=== PATIENT | female | born 1945 | race Caucasian/White ===

== ENCOUNTER → 2017-01-28 | Outpatient (CLI) | payer BC ==
[2017-01-28 09:56] LABS: ALT/SGPT 38 U/L (12-78); AST/SGOT 30 U/L (15-37); BLOOD UREA NITROGEN 19 mg/dl (7-18); BUN/CREATININE RATIO 22.1 (10-20); CALCIUM 8.7 mg/dl (8.5-10.1); CARBON DIOXIDE 29 mmol/L (21-32); CHLORIDE 108 mmol/L (98-107); CREATININE 0.86 mg/dl (0.60-1.20); FERRITIN 54.5 ng/ml (8.0-388.0); GLUCOSE 92 mg/dl (70-99); POTASSIUM 3.8 mmol/L (3.5-5.1); SODIUM 144 mmol/L (136-145)
[2017-01-28 09:58] LABS: ALB/GLOB RATIO 1.1 (0.9-2); ALKALINE PHOSPHATASE 67 U/L (45-117); CHOLESTEROL 182 mg/dl (0-200); CHOLESTEROL/HDL RATIO 3.7; HDL CHOLESTEROL 49 mg/dl; LDL CHOLESTEROL CALCULATED 99 mg/dl; TRIGLYCERIDES 169 mg/dl (0-150); VERY LOW DENSITY LIPOPROT CALC 34 mg/dl
--- NOTE | 2017-02-04 11:20 | CODING QUERY MEDICAL NECESSITY ---
SUPPORTING DIAGNOSIS NEEDED A supporting diagnosis is required for the test/procedure performed on this patient in order for us to be reimbursed by the patient's insurance. Please provide a supporting diagnosis for the following test/procedure listed below next to the test name along with your signature. *If there is no additional diagnosis for this patient that would support the following test/procedure please document that below next to the test/procedure. Test(s)/Procedure(s) that require a supporting diagnosis: DOS 01/28 * Vitamin D DIAGNOSIS: * Vitamin B12 DIAGNOSIS: * Iron DIAGNOSIS: Provider Signature: Date: Thank you Teresa Knight Health Information Management Once completed, please kindly fax back to [phone] For questions please call [phone]
== END | disposition home or self-care (01) ==
LOC: C.LAB1850 08:33
PROVIDERS: ATTEND Internal Medicine
DX: E78.5 Hyperlipidemia, unspecified (principal); Z11.59 Encounter for screening for other viral diseases; G25.81 Restless legs syndrome; M85.80 Other specified disorders of bone density and structure, unspecified site; E55.9 Vitamin D deficiency, unspecified; E53.8 Deficiency of other specified B group vitamins; R29.898 Other symptoms and signs involving the musculoskeletal system

== ENCOUNTER → 2017-03-05 | Outpatient (CLI) | payer BC ==
--- NOTE | 2017-03-05 17:10 | MAMMOGRAPHY REPORT ---
BILATERAL DIGITAL SCREENING MAMMOGRAM WITH CAD: 03/05/2017 CLINICAL HISTORY: Routine screening. TECHNIQUE: Current study was also evaluated with a Computer Aided Detection (CAD) system. COMPARISON: Comparison is made to exams dated: 02/28/2016 mammogram, 02/22/2015 mammogram, 02/16/2014 m ammogram, 02/11/2013 mammogram, 02/11/2012 mammogram, and 02/07/2011 mammogram - [facility] nter. BREAST COMPOSITION: There are scattered areas of fibroglandular density in both breasts. FINDINGS: The parenchymal pattern is similar to prior exams. No developing mass, architectural dis tortion or cluster of suspicious microcalcifications is seen in either breast. IMPRESSION: ACR BI-RADS CATEGORY 2: BENIGN There is no mammographic evidence of malignancy. A 1 year screening mammogram is recommended. The p atient will receive written notification of the results. Approximately 10% of breast cancers are not detected with mammography. A negative mammographic repor t should not delay biopsy if a clinically suggestive mass is present. Jaqueline Garvin M.D. ay/:03/05/2017 16:16:40 Principal Network Architect: Hao QUEEN(R)(M), [facility] letter sent: Normal 1/2 BI-RADS Code: ACR BI-RADS Category 2: Benign
== END | disposition home or self-care (01) ==
LOC: C.MAMM 09:35
PROVIDERS: ATTEND Obstetrics & Gynecology
DX: Z12.31 Encounter for screening mammogram for malignant neoplasm of breast (principal)

== ENCOUNTER → 2017-04-03 | Outpatient (CLI) | payer BC | END | disposition home or self-care (01) | LOC: C.PATHSPEC 14:14 | PROVIDERS: ATTEND Obstetrics & Gynecology | DX: L90.0 Lichen sclerosus et atrophicus (principal) ==

== ENCOUNTER → 2017-08-05 | Outpatient (CLI) | payer BC ==
[2017-08-05 09:48] LABS: ALT/SGPT 26 U/L (12-78); BLOOD UREA NITROGEN 17 mg/dl (7-18); BUN/CREATININE RATIO 18.6 (10-20); CARBON DIOXIDE 29 mmol/L (21-32); CHLORIDE 107 mmol/L (98-107); CREATININE 0.91 mg/dl (0.60-1.20); GLUCOSE 90 mg/dl (70-99); SODIUM 143 mmol/L (136-145)
[2017-08-05 09:51] LABS: ALB/GLOB RATIO 1.2 (0.9-2); ALKALINE PHOSPHATASE 68 U/L (45-117); AST/SGOT 26 U/L (15-37)
== END | disposition home or self-care (01) ==
LOC: C.LAB1850 08:22
PROVIDERS: ATTEND Internal Medicine
DX: E53.8 Deficiency of other specified B group vitamins (principal); E78.5 Hyperlipidemia, unspecified; E55.9 Vitamin D deficiency, unspecified

== ENCOUNTER → 2018-02-03 | Outpatient (CLI) | payer BC ==
[2018-02-03 10:16] LABS: ALBUMIN 3.8 gm/dl (3.4-5.0); ALT/SGPT 24 U/L (12-78); AST/SGOT 17 U/L (15-37); BLOOD UREA NITROGEN 17 mg/dl (7-18); CALCIUM 8.5 mg/dl (8.5-10.1); CARBON DIOXIDE 28 mmol/L (21-32); CHOLESTEROL 165 mg/dl (0-200); CREATININE 1.02 mg/dl (0.60-1.20); GLUCOSE 94 mg/dl (70-99); POTASSIUM 4.3 mmol/L (3.5-5.1); SODIUM 141 mmol/L (136-145); TRANSFERRIN 250 mg/dl (200-360)
[2018-02-03 10:24] LABS: ALKALINE PHOSPHATASE 61 U/L (45-117); LDL CHOLESTEROL CALCULATED 88 mg/dl; TOTAL PROTEIN 7.1 gm/dl (6.4-8.2)
== END | disposition home or self-care (01) ==
LOC: C.LAB1850 08:43
PROVIDERS: ATTEND Internal Medicine
DX: E78.5 Hyperlipidemia, unspecified (principal); G25.81 Restless legs syndrome; E53.8 Deficiency of other specified B group vitamins; E55.9 Vitamin D deficiency, unspecified

== ENCOUNTER → 2018-03-11 | Outpatient (CLI) | payer BC ==
--- NOTE | 2018-03-11 15:46 | MAMMOGRAPHY REPORT ---
BILATERAL DIGITAL SCREENING MAMMOGRAM TOMOSYNTHESIS WITH CAD: 03/11/2018 CLINICAL HISTORY: Routine screening. Patient has no complaints. TECHNIQUE: Breast tomosynthesis in addition to standard 2D mammography was performed. Current study was also evaluated with a Computer Aided Detection (CAD) system. COMPARISON: Comparison is made to exams dated: 03/05/2017 mammogram, 02/28/2016 mammogram, 02/22/2015 m ammogram, 02/16/2014 mammogram, 02/11/2012 mammogram, and 02/07/2011 mammogram - [facility] ter. BREAST COMPOSITION: There are scattered areas of fibroglandular density in both breasts. FINDINGS: The parenchymal pattern is unchanged. No developing mass, architectural distortion or clus ter of suspicious microcalcifications is seen in either breast. IMPRESSION: ACR BI-RADS CATEGORY 2: BENIGN There is no mammographic evidence of malignancy. A 1 year screening mammogram is recommended. The pa tient will receive written notification of the results. Approximately 10% of breast cancers are not detected with mammography. A negative mammographic report should not delay biopsy if a clinically suggestive mass is present. Jaqueline Garvin M.D. ay/:03/11/2018 09:55:36 Finance Admin: Berta Hameed, [facility] letter sent: Normal 1/2 BI-RADS Code: ACR BI-RADS Category 2: Benign
== END | disposition home or self-care (01) ==
LOC: C.MAMM 09:16
PROVIDERS: ATTEND Internal Medicine
DX: Z12.31 Encounter for screening mammogram for malignant neoplasm of breast (principal)

== ENCOUNTER 2025-03-18 06:01 | Observation (INO) ==
--- NOTE | 2025-03-02 10:07 | PAT Medication Instructions ---
Medication Instructions Date of Service March 02, 2025 Home Medications Medication Instructions Recorded clobetasol 0.05 % topical cream 1 applic topical BID PRN Rash #30 03/10/24 grams diltiazem HCl 120 mg 120 mg PO HS #90 caps 05/10/24 capsule,extended release 24 hr rosuvastatin 5 mg tablet 5 mg PO QPM #90 tabs 05/10/24 pramipexole 0.5 mg tablet 0.5 mg PO QPM #90 tabs 10/05/24 Medication List: clobetasol 0.05 % topical cream 1 applic topical BID PRN Rash vit C 250 mg-vit E 90 mg-zinc 40 mg-copper 1 lo-thloov-cdhyaf capsule (PreserVision AREDS-2) 1 tab PO BID cholecalciferol (vitamin D3) 50 mcg (2,000 unit) capsule 50 mcg PO QAM mecobalamin (vitamin B12) 1,000 mcg chewable tablet 1,000 mcg PO QAM diltiazem HCl 120 mg capsule,extended release 24 hr 120 mg PO HS rosuvastatin 5 mg tablet 5 mg PO QPM pramipexole 0.5 mg tablet 0.5 mg PO QPM acetaminophen 650 mg tablet,extended release (Tylenol Arthritis Pain) 1,300 mg PO QAM lorazepam 0.5 mg tablet 0.5 mg PO DAILY PRN Anxiety MEDICATION INSTRUCTIONS: Continue as directed clobetasol 0.05 % topical cream 1 applic topical BID PRN Rash (do not use after bathing prior to surgery) STOP taking 2 weeks before surgery vit C 250 mg-vit E 90 mg-zinc 40 mg-copper 1 [id number]-aogdxh-rxunze capsule (PreserVision AREDS-2) 1 tab PO BID DO NOT take the morning of surgery cholecalciferol (vitamin D3) 50 mcg (2,000 unit) capsule 50 mcg PO QAM mecobalamin (vitamin B12) 1,000 mcg chewable tablet 1,000 mcg PO QAM Take morning of surgery With a small sip of water, OTHERWISE NOTHING TO EAT OR DRINK AFTER MIDNIGHT: acetaminophen 650 mg tablet,extended release (Tylenol Arthritis Pain) 1,300 mg PO QAM lorazepam 0.5 mg tablet 0.5 mg PO DAILY PRN Anxiety Take evening before surgery diltiazem HCl 120 mg capsule,extended release 24 hr 120 mg PO HS rosuvastatin 5 mg tablet 5 mg PO QPM pramipexole 0.5 mg tablet 0.5 mg PO QPM Other Notes If you have any questions please call us at [phone] or [phone] or [phone] or [phone]
--- NOTE | 2025-03-04 11:25 | Anesthesiology Consultation ---
Date of Service March 04, 2025 Assessment & Plan (1) Encounter for pre-operative examination: - Infectious disease screening: Per assessment on 03/04/25- No known recent infectious disease contacts or current infectious disease symptoms. - PCP visit (03/11/25): "estimated risk probability for perioperative SILVIA 0.1% which is low.. vital signs reviewed and were stable today.. patient was instruc margi to follow up with pre anesthesia testing recommendations for stopping medications prior to surgery.. Reviewed patient's most recent blood work as well as EKG-stable.. from a general medical standpoint, patient cleared for surgery" Chart Review Chart Review: Acceptable Risk for Surgery and Patient seen in Pre Admission Testing Teaching & Discussion Pre-Anesthesia Teaching/Discussion Notes: Instructed NPO after midnight before surgery,except medications with 15 cc of water. Medication instructions provided according to the PAT guidelines. History Surgery Operation Date: 03/18/25 07:30 Proposed Procedures p C3-C4, C4-C5 Anterior Cervical Discectomy and Fusion Spinal Cord Monitoring - Jone Patiño MD Height/Weight Height: 5 ft 3.5 in Weight: 65.1 kg Allergies Allergy/AdvReac Type Severity Reaction Status Date / Time crab Allergy Intermediate Hives Verified 03/11/25 11:28 gabapentin AdvReac Intermediate Dizziness Verified 03/11/25 11:28 hydromorphone AdvReac Intermediate Gastrointestinal Verified 03/11/25 11:28 Upset simvastatin AdvReac Intermediate Leg cramps Verified 03/11/25 11:28 Medications Home Medications Medication Instructions Recorded Confirmed Last Taken clobetasol 0.05 % topical cream 1 applic topical BID PRN Rash #30 03/10/24 03/11/25 Unknown grams vit C 250 mg-vit E 90 mg-zinc 40 1 tab PO BID 03/10/24 03/11/25 06/02/24 mg-copper 1 [id number] capsule (PreserVision AREDS-2) cholecalciferol (vitamin D3) 50 50 mcg PO QAM 04/22/24 03/11/25 06/02/24 mcg (2,000 unit) capsule mecobalamin (vitamin B12) 1,000 1,000 mcg PO QAM 04/22/24 03/11/25 06/02/24 mcg chewable tablet diltiazem HCl 120 mg 120 mg PO HS #90 caps 05/10/24 03/11/25 06/02/24 capsule,extended release 24 hr rosuvastatin 5 mg tablet 5 mg PO QPM #90 tabs 05/10/24 03/11/25 06/02/24 pramipexole 0.5 mg tablet 0.5 mg PO QPM #90 tabs 10/05/24 03/11/25 Unknown acetaminophen 650 mg 1,300 mg PO QAM 03/02/25 03/11/25 Unknown tablet,extended release (Tylenol Arthritis Pain) Past Medical History Medical History Adverse effect of non-steroidal anti-inflammatory drug (NSAID) Entered per remote records, patient denies Asymptomatic age-related postmenopausal state Cervical kyphosis Cervical myelopathy Cervical spine degeneration Chronic low back pain Gait disturbance R/t back pain per patient No assistive devices at this time History of colon polyps History of COVID-19 x2, most recent 2021- Mild symptoms, resolved History of supraventricular tachycardia EMR - 2021 "It might have come from the covid shot." as per patient - no issues since Hyperlipidemia Hypertension Lichen sclerosus et atrophicus Lumbar degenerative disc disease Osteopenia Restless leg syndrome SI (sacroiliac) joint inflammation Exercise / Class Metabolic Activity III < 4 Walking/Shop/Light housework Past Family History Family History Father Family history of diabetes mellitus Mother Breast cancer dx in 60's Other No family history of adverse response to anesthesia Denies family history of Ovarian cancer Prostate cancer Myocardial infarction Colorectal cancer Uterine cancer Past Surgical History Surgical History Adverse effect of anesthesia "Slow to wake up" History of bilateral cataract extraction History of colonoscopy History of esophagogastroduodenoscopy (EGD) History of tooth extraction History of wisdom tooth extraction Past Anesthesia History No Family Hx of Anesthesia Complications and Other ("Slow to wake") History of PONV No Hx of PONV and Hx of Motion Sickness Social History Smoking Status: Never smoker Do You Dip or Chew Tobacco: No Hx Alcohol Use: No Hx Substance Use: No substance use type: does not use Review of Systems Patient denies chest pain, shortness of breath, fever, chills, cough, wheezing, palpitations. Physical Exam Vital Signs BP 125/73 P 83 TEMP 98.3 SP02 96%RA RESP 16 Physical Decreased cervical extension range of motion. Full TMJ range of motion. TMD > 3.5 finger breaths Mallampati Score II Dentition: missing side Lungs: clear throughout to auscultation Cardiac: regular rate and rhythm, no murmurs noted Spine: normal Carotid arteries: negative bruit Extremities: no LE edema Lab Results Anesthesia Preop Results Results Anesthesia Widget: WBC 6.24 K/ul (4.8-10.8) 03/04/25 Hgb 13.4 g/dl (12.0-16.0) 03/04/25 Hct 40.9 % (37.0-47.0) 03/04/25 Plt 271 K/uL (130-400) 03/04/25 Na 144 mmol/L (136-145) 03/04/25 K 4.1 mmol/L (3.5-5.1) 03/04/25 Cl 107 mmol/L (98-107) 03/04/25 CO2 30 mmol/L (21-32) 03/04/25 BUN 22 mg/dl (6-23) 03/04/25 Creat 1.00 mg/dl (0.6-1.2) 03/04/25 Glucose Level 114 mg/dl (70-99(Fasting)) H 03/04/25 PT 10.6 Seconds (9.0-12.0) 03/04/25 PTT 27 Seconds (21-31) 03/04/25 INR 1.0 (0.9-1.1) 03/04/25 HA1c 5.4 % (4.5-5.6) 03/04/25 Blood Type A Positive 03/04/25 Antibody Screen NEGATIVE 03/04/25 Testing Electrocardiogram Date: 03/04/25 NSR at 78bpm. TWA, consider lateral ischemia. ECG done 11/22/2021 (scanned into system) with lateral TWI. Stress echo was done for further evaluation 12/13/21 (exercise echo with no inducible ischemia; poor exercise tolerance). Stress Test Date: 12/13/21 Normal exercise echo without evidence of inducible ischemia at the workload achieved, but very poor exercise tolerance. 86% MPHR. 4.60 METS. LV normal in size and systolic function. LVEF 60-65%. Mild cLVH. Stage II DD. No significant valvular disease.
[2025-03-18] MEDS: LR 60ML/HR IV SCH (06:33)
[2025-03-18] MEDS: LR 15ML/HR IV SCH (06:33)
[2025-03-18] MEDS ORDERED: SUCCINYLCHOLINE CHLORIDE 20 MG/ML 10 ML VIAL IV ONE (06:54)
[2025-03-18] MEDS ORDERED: ONDANSETRON INJ 2 MG/ML 2 ML VIAL ONE (06:54)
[2025-03-18] MEDS ORDERED: DEXAMETHASONE SOD INJ 4 MG/ML VIAL ONE (06:54)
[2025-03-18] MEDS ORDERED: LIDOCAINE 2% 2 ML VIAL/AMP(20MG/ML) INFIL ONE (06:54)
[2025-03-18] MEDS ORDERED: PROPOFOL IV EMULSION 10 MG/ML 20 ML VIAL IV ONE (06:54)
[2025-03-18] MEDS ORDERED: ROCURONIUM BROMIDE 10 MG/ML 5 ML VIAL IV ONE (06:54)
[2025-03-18] MEDS ORDERED: fentaNYL citrate PF 100 MCG/2 ML VIAL ONE ×2 (06:55→09:47)
[2025-03-18] MEDS ORDERED: HYDROmorphone INJ 1 MG/ML SYRINGE IV PRN (06:58)
[2025-03-18] MEDS ORDERED: ATROPINE SULFATE 0.1 MG/ML 10ML SYR IV PRN (06:58)
[2025-03-18] MEDS ORDERED: fentaNYL citrate PF 100 MCG/2 ML VIAL IV PRN (06:58)
[2025-03-18] MEDS ORDERED: ePHEDrine sulfate 50 MG/ML AMP IV PRN (06:58)
[2025-03-18] MEDS ORDERED: DexMEDEtomidine HCL IV 100 MCG/ML VIAL IV ONE (07:02)
[2025-03-18] MEDS ORDERED: PROPOFOL IV EMULSION 10 MG/ML 100 ML VIAL IV ONE ×2 (07:02→09:33)
--- NOTE | 2025-03-18 07:02 | Anesthesiology Consultation ---
Date of Service March 18, 2025 Assessment & Plan Chart Review Chart Review: Acceptable Risk for Surgery Consults Requested none ASA ASA2 Proposed Anesthesia Anesthesia Type: General History Surgery Operation Date: 03/18/25 07:30 Proposed Procedures p C3-C4, C4-C5 Anterior Cervical Discectomy and Fusion, Spinal Cord Monitoring - Jone Patiño MD Height/Weight Height: 5 ft 3.5 in Weight: 66 kg Allergies Allergy/AdvReac Type Severity Reaction Status Date / Time crab Allergy Intermediate Hives Verified 03/18/25 06:17 gabapentin AdvReac Intermediate Dizziness Verified 03/18/25 06:17 hydromorphone AdvReac Intermediate Gastrointestinal Verified 03/18/25 06:17 Upset simvastatin AdvReac Intermediate Leg cramps Verified 03/18/25 06:17 Medications Home Medications Medication Instructions Recorded Confirmed Last Taken clobetasol 0.05 % topical cream 1 applic topical BID PRN Rash #30 03/10/24 03/18/25 Unknown grams vit C 250 mg-vit E 90 mg-zinc 40 1 tab PO BID 03/10/24 03/18/25 03/11/25 08:00 mg-copper 1 [id number] capsule (PreserVision AREDS-2) cholecalciferol (vitamin D3) 50 50 mcg PO QAM 04/22/24 03/18/25 03/17/25 08:00 mcg (2,000 unit) capsule mecobalamin (vitamin B12) 1,000 1,000 mcg PO QAM 04/22/24 03/18/25 03/17/25 08:00 mcg chewable tablet diltiazem HCl 120 mg 120 mg PO HS #90 caps 05/10/24 03/18/25 03/17/25 21:00 capsule,extended release 24 hr rosuvastatin 5 mg tablet 5 mg PO QPM #90 tabs 05/10/24 03/18/25 03/17/25 21:00 pramipexole 0.5 mg tablet 0.5 mg PO QPM #90 tabs 10/05/24 03/18/25 03/17/25 21:00 acetaminophen 650 mg 1,300 mg PO QAM 03/02/25 03/18/25 03/17/25 08:00 tablet,extended release (Tylenol Arthritis Pain) Active Medications Generic Name Dose Route Start Last Admin Trade Name Freq PRN Reason Stop Dose Admin Lactated Ringer's 1,000 mls @ 15 mls/hr 03/18/25 06:00 03/18/25 06:33 Lr IV 03/19/25 05:59 15 mls/hr .Q24H CHASTITY Administration Lactated Ringer's 1,000 mls @ 60 mls/hr 03/18/25 06:00 03/18/25 06:33 Lr IV 03/18/25 22:39 Not Given .[id number] CHASTITY NPO Date Last Intake of Fluids: 03/17/25 Time Last Intake of Fluids: 21:00 Date Last Intake of Solids: 03/17/25 Time Last Intake of Solids: 17:30 Past Medical History Medical History Adverse effect of non-steroidal anti-inflammatory drug (NSAID) Entered per remote records, patient denies Cervical kyphosis Cervical myelopathy History of supraventricular tachycardia EMR - 2021 "It might have come from the covid shot." as per patient - no issues since Lichen sclerosus et atrophicus Gait disturbance R/t back pain per patient No assistive devices at this time Osteopenia Lumbar degenerative disc disease Chronic low back pain Hypertension History of colon polyps Cervical spine degeneration History of COVID-19 x2, most recent 2021- Mild symptoms, resolved Asymptomatic age-related postmenopausal state SI (sacroiliac) joint inflammation Restless leg syndrome Hyperlipidemia Exercise / Class Metabolic Activity II 4-5 Yardwork/Stairs/Walk up hill Past Family History Family History Father Family history of diabetes mellitus Mother Breast cancer dx in 60's Other No family history of adverse response to anesthesia Denies family history of Ovarian cancer Prostate cancer Myocardial infarction Colorectal cancer Uterine cancer Past Surgical History Surgical History Adverse effect of anesthesia "Slow to wake up" History of colonoscopy History of esophagogastroduodenoscopy (EGD) History of tooth extraction History of wisdom tooth extraction History of bilateral cataract extraction Past Anesthesia History No Hx of Anesthesia Complications History of PONV No Hx of PONV Social History Smoking Status: Never smoker Do You Dip or Chew Tobacco: No Hx Alcohol Use: No Hx Substance Use: No substance use type: does not use Physical Exam Vital Signs Last Vital Signs Temp 36.8 C 03/18/25 06:21 Pulse 81 03/18/25 06:21 Resp 16 03/18/25 06:21 BP 160/80 H 03/18/25 06:21 Pulse Ox 96 03/18/25 06:21 O2 Del Method Room Air 03/18/25 06:21 Constitutional no acute distress ENMT Mouth: no TMJ abnormality Thyromental Distance: > or= 3.5 Finger Breadths Mallampati Class: I Neck normal visual inspection Respiratory normal respiratory effort Auscultation: lungs clear to auscultation bilaterally Cardiovascular Rate/Rhythm: regular rate and regular rhythm Neurologic moves all extremities Psychiatric Orientation: alert and oriented x 3 Testing Electrocardiogram Date: 03/04/25 NSR at 78bpm. TWA, consider lateral ischemia. ECG done 11/22/2021 (scanned into system) with lateral TWI. Stress echo was done for further evaluation 12/13/21 (exercise echo with no inducible ischemia; poor exercise tolerance). Stress Test Date: 12/13/21 Normal exercise echo without evidence of inducible ischemia at the workload achieved, but very poor exercise tolerance. 86% MPHR. 4.60 METS. LV normal in size and systolic function. LVEF 60-65%. Mild cLVH. Stage II DD. No significant valvular disease.
--- NOTE | 2025-03-18 07:27 | History & Physical Bridge Note ---
Date of Service March 18, 2025 History & Physical Bridge Note I have examined the patient, reviewed the History & Physical and in the interval since the performance of the History & Physical I have noted the following changes of clinical significance: no changes noted Plan for ACDF C3-4, C4-5
[2025-03-18] MEDS: ceFAZolin 2000MG 2,000 MG/15 ML SYR IV SCH (08:05)
[2025-03-18] MEDS ORDERED: HYDROmorphone INJ 2 MG/ML SYR/VIAL ONE (08:17)
[2025-03-18] MEDS ORDERED: hydrALAZINE HCL 20 MG/ML VIAL ONE (09:59)
[2025-03-18] MEDS: VANCOMYCIN HCL 1000MG/20ML VIAL ONE (10:38)
[2025-03-18] MEDS: FLOSEAL HEMOSTATIC MATRIX 10ML TOP ONE (10:43)
--- NOTE | 2025-03-18 11:03 | Post Operative Brief Note ---
PG Immediate Post Op with CF Date of Surgery March 18, 2025 Pre & Post Diagnosis Operation Date: 03/18/25 07:30 Pre-Op Diagnosis: Spondylolisthesis, Cervical Region Cervical Stenosis of Spinal Canal Cervical Myelopathy Cervical Disc Degeneration Cervical Kyphosis Post-Op Diagnosis: Spondylolisthesis, Cervical Region Cervical Stenosis of Spinal Canal Cervical Myelopathy Cervical Disc Degeneration Cervical Kyphosis I identified the patient and participated in the time-out.: Yes Procedure Operation Date: 03/18/25 07:30 Actual Procedures p C3-C4, C4-C5 Anterior Cervical Discectomy and Fusion, Spinal Cord Monitoring(Not Applicable) - Jone Patiño MD Surgeon Jone Patiño MD Fruit Dumper Sotero Krause PAScarlet Estimated Blood Loss 20 Findings Consistent with Post-Op Diagnosis Drains Emir Drain (15fr) and Eubanks Catheter Anesthesia Type General Complications none Disposition Disposition: Recovery Room
--- NOTE | 2025-03-18 11:20 | Operative Report ---
Post Operative Report Pre & Post Diagnosis Operation Date: 03/18/25 07:30 Pre-Op Diagnosis: Spondylolisthesis, Cervical Region Cervical Stenosis of Spinal Canal Cervical Myelopathy Cervical Disc Degeneration Cervical Kyphosis Post-Op Diagnosis: Spondylolisthesis, Cervical Region Cervical Stenosis of Spinal Canal Cervical Myelopathy Cervical Disc Degeneration Cervical Kyphosis I identified the patient and participated in the time-out.: Yes Procedure Operation Date: 03/18/25 07:30 Actual Procedures C3-C4 Anterior Cervical Discectomy and Fusion (74123) Insertion of Interbody Spacer for Fusion C3-4 () C4-C5 Anterior Cervical Discectomy and Fusion (91718) Insertion of Interbody Spacer for Fusion C4-5 () Anterior Cervical Instrumentation separate from Spacer C3, C4, C5 (88346) Allograft for Spinal Fusion () Implants: Camber Spira C Interbody, Camber Matira Plate Surgeon Jone Patiño MD Rebar Bender Sotero Krause PA-C Estimated Blood Loss 20 Findings Consistent with Post-Op Diagnosis Specimens None Drains Emir Anesthesia Type General Complications none Disposition Disposition: Recovery Room Indications Patient was met in the office where she had signs of C4 cervical radiculopathy as well as cervical myelopathy. We discussed imaging findings with severe disc degeneration, cervical spondylolisthesis and spinal canal stenosis. Operative intervention was discussed in detail, patient elected to proceed with anterior cervical discectomy and fusion at C3-4, C4-5. Description of Procedure Patient was brought to the operating room, she transferred herself independently to the operating table. General anesthesia was induced, neuromonitoring leads were attached as well as SCDs, Eubanks catheter was placed. She was prepped and draped in the usual sterile fashion. Verbal timeout was performed identifying the patient by name date of and verifying the correct procedure. Skin was marked and an anterior cervical incision was made in the upper left side of the patient's neck. Dissection was carried out down to the platysma which was split and elevated. The interval between the sternocleidomastoid as well as the cervical strap muscles was identified. Blunt dissection was carried out to identify the anterior cervical spine. Carotid sheath was palpated and kept lateral to the dissection. I marked the C3-4 disc space with spinal needle and confirmed with fluoroscopy. The prevertebral fascia was then elevated to expose the anterior C3, C4 and superior portion of C5 vertebral bodies as well as the C3-4 and C4-5 disc space. Large anterior osteophyte was removed from the inferior portion of the C3 verte bral body which was covering the C3-4 disc. Longus coli muscles were elevated off the spine bilaterally. Self-retaining retractor was placed. Callao pins were placed into the vertebral bodies of C3 and C4 and distraction was applied across the C3-4 disc space. This restored forward normal alignment to the spinal column at this level. Complete discectomy was then performed removing the C3-4 disc with a series of pituitary rongeur's curettes. High-speed bur was used to remove remaining anterior osteophyte as well as the posterior osteophytes. The posterior longitudinal ligament was identified and transected. Bilateral foraminotomies were performed at C3-4. The C3 and C4 vertebral endplates were then decorticated with a high-speed bur to obtain bleeding bone. Appropriate size interbody spacer was selected and packed with allograft material, this was placed within the C3-4 interspace to encourage interbody fusion. Self-retaining retractor as well as Callao pins were then moved to the C4-5 level. Again the anterior osteophytes were taken down with Kerrison rongeur. Complete discectomy again performed with a series of curettes, pituitary rongeurs to remove the entire C4-5 disc. Posterior osteophytes were taken down with a high-speed bur. Posterior longitudinal ligament was identified and transected. This was removed completely with Kerrison punch. Bilateral foraminotomies were then performed to decompress the exiting C5 nerve roots. Once again the C4 and C5 vertebral endplates were decorticated to obtain bleeding bone. Appropriate size interbody spacer was selected and packed with allograft material. This was spaced within the C4-5 interspace to encourage interbody fusion. Callao pins were removed. An anterior cervical plate was selected and laid over the anterior vertebral bodies. Position was confirmed with intraoperative fluoroscopy. Screws were then placed through the anterior cervical plate into the bodies of C4, C5 and C3. This completed anterior instrumentation separate from the interbody spacers. Wound was thoroughly irrigated. There was no sign of active bleeding. Emir drain was placed exiting out through the anterior skin and sewn in place. Platysma was closed with interrupted Vicryl sutures. The skin was closed with Monocryl and Steri-Strips. Dry sterile dressing applied, soft cervical collar placed. The patient was transferred to PACU in stable condition. I attest to the content of the Intraoperative Record and any orders documented therein. Any exceptions are noted below.
[2025-03-18] MEDS ORDERED: MoRPHine SULFATE 4 MG/ML 1 ML CARP\\VIAL IV PRN (11:21)
[2025-03-18] MEDS ORDERED: bisacodyL 10 MG SUPP PR PRN (11:21)
[2025-03-18] MEDS ORDERED: hydrOXYzine HCl 25 MG TAB PO PRN (11:21)
[2025-03-18] MEDS ORDERED: SOD PHOSPHATE/SOD BIPHOSPHATE ENEMA 132 ML BTL PR PRN (11:21)
[2025-03-18] MEDS ORDERED: LORazepam 2 MG/1 ML VIAL IV PRN (11:21)
[2025-03-18] MEDS ORDERED: FAMOTIDINE 20 MG TAB PO PRN (11:21)
[2025-03-18] MEDS ORDERED: NALOXONE HCL 0.4 MG/1 ML VIAL/CARP IV PRN (11:21)
[2025-03-18] MEDS ORDERED: ONDANSETRON INJ 2 MG/ML 2 ML VIAL IV PRN (11:21)
[2025-03-18] MEDS ORDERED: METOCLOPRAMIDE HCL INJ 5 MG/ML 2 ML VIAL IV PRN (11:21)
[2025-03-18] MEDS ORDERED: DO NOT ADMINISTER PNEUMOCOCCAL VACCINE PRN (11:21)
[2025-03-18] MEDS ORDERED: diphenhydrAMINE Capsule 25 MG CAP PO PRN (11:21)
[2025-03-18] MEDS ORDERED: DO NOT ADMINISTER FLU VACCINE PRN (11:21)
[2025-03-18] MEDS ORDERED: RACEPINEPHRINE 2.25% NEBU SOLN 0.5 ML VIAL INH PRN (11:21)
[2025-03-18] MEDS ORDERED: dexAMETHasone 8 MG in SYRINGE 0 ML IV PRN (11:21)
[2025-03-18] MEDS ORDERED: ACETAMINOPHEN 500 MG TAB PO PRN (11:21)
[2025-03-18] MEDS ORDERED: MAGNESIUM HYDROXIDE SUSP 30 ML UDC PO PRN (11:21)
[2025-03-18] MEDS ORDERED: ALUMINUM/MAGNESIUM SUSP 30 ML UDC PO PRN (11:21)
[2025-03-18] MEDS ORDERED: LORazepam 0.5 MG TAB PO PRN (11:21)
--- NOTE | 2025-03-18 11:29 | Fluoroscopy Report ---
FL cervical 2-3V CLINICAL HISTORY: C3-C4, C4-C5 ACDF COMPARISON STUDY: None FLUOROSCOPY TIME: 58 seconds FLUOROSCOPY IMAGES: 5 EXPOSURE DOSE: 4 mGy FINDINGS: Fluoroscopy was provided for cervical metallic fusion. IMPRESSION: Intraoperative fluoroscopy. ACT 112: Negative or not required by law. Electronically signed by: Uday Shin M.D. 03/18/2025 11:27 AM
[2025-03-18 12:23] LABS: BUN Creatinine Ratio 17.2 (10-20); Calcium 8.7 mg/dl (8.6-10.3); Creatinine Clr Calc Pharmacy 43.3 ml/min; Potassium 4.2 mmol/L (3.5-5.1)
--- NOTE | 2025-03-18 14:15 | Orthopedic Progress Note ---
Date of Service March 18, 2025 Assessment & Plan (1) S/P cervical spinal fusion: Sensation and motor function appears to be intact, will continue to monitor while here but when awake she does fire all muscles appropriately, possible that the SCDs were creating odd sensation in calf/ankle area. 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 Patient very somnolent, able to arouse her, follows commands but violeta nues to nod off during exam Review of Systems All systems reviewed & are unremarkable except as noted in HPI & below. 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 Diagnostic Findings . PG Care Time/CCT Total # of Minutes Spent Total Time Spent with Patient: Total time spent is greater than 50% in coordination of care (as documented) at patient's floor/unit and/or counseling patient: Coding Level of Care Code 38000 Post Operative Follow-Up Diagnoses S/P cervical spinal fusion Z98.1
[2025-03-18] MEDS: ONDANSETRON INJ 2 MG/ML 2 ML VIAL IV PRN (14:31)
--- NOTE | 2025-03-18 14:32 | Anesthesiology Progress Note ---
Date of Service March 18, 2025 Anesthesia Post Procedure Vital Signs Vital Signs: Temp Pulse Pulse Resp BP Pulse Ox O2 Del Method 03/18/25 14:25 75 10 L 131/64 95 Nasal Cannula 03/18/25 14:15 78 12 132/66 94 Nasal Cannula 03/18/25 14:05 83 18 109/85 94 Nasal Cannula 03/18/25 13:55 81 10 L 140/67 92 Nasal Cannula 03/18/25 13:45 81 8 L 124/75 94 Nasal Cannula 03/18/25 13:35 36.4 C L 82 9 L 131/69 92 Nasal Cannula 03/18/25 13:25 79 11 L 131/69 94 Oxymask 03/18/25 13:15 80 15 123/76 95 Oxymask 03/18/25 13:05 78 10 L 128/61 94 Oxymask 03/18/25 12:55 79 11 L 125/65 92 Oxymask 03/18/25 12:45 76 12 121/61 93 Oxymask 03/18/25 12:35 75 12 120/61 93 Oxymask 03/18/25 12:25 76 12 128/64 94 Oxymask 03/18/25 12:15 76 12 122/64 94 Oxymask 03/18/25 12:05 77 19 129/77 92 Oxymask 03/18/25 11:55 78 15 130/66 96 Oxymask 03/18/25 11:45 72 17 93/64 L 95 Oxymask 03/18/25 11:35 71 18 98/51 L 95 Oxymask 03/18/25 11:25 72 21 99/52 L 96 Oxymask 03/18/25 11:16 36.0 C L 69 17 113/69 96 Oxymask 03/18/25 06:21 36.8 C 81 16 160/80 H 96 Room Air O2 Flow Rate 03/18/25 14:25 2 03/18/25 14:15 2 03/18/25 14:05 2 03/18/25 13:55 2 03/18/25 13:45 2 03/18/25 13:35 2 03/18/25 13:25 4 03/18/25 13:15 4 03/18/25 13:05 4 03/18/25 12:55 4 03/18/25 12:45 4 03/18/25 12:35 4 03/18/25 12:25 4 03/18/25 12:15 5 03/18/25 12:05 5 03/18/25 11:55 10 03/18/25 11:45 15 03/18/25 11:35 15 03/18/25 11:25 15 03/18/25 11:16 15 03/18/25 06:21 Transfer of Care Handoff Completed per policy Notes Mental Status: alert / awake / arousable Patient Amnestic to Procedure: Yes Nausea / Vomiting: adequately controlled Pain: adequately controlled Airway Patency, RR, SpO2: stable & adequate BP & HR: stable & adequate Hydration State: stable & adequate Anesthetic Complications: no major complications apparent and Pt Satisfied with anesthetic care Notes: Pt appears slightly weaker in upper and lower extremities (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
[2025-03-18] MEDS ORDERED: CLOBETASOL PROPIONATE 0.05% CREAM 15 GM TUBE TOP PRN (15:02)
[2025-03-18] MEDS: LACTATED RINGER'S 1,000 ML IV SCH (15:06)
--- NOTE | 2025-03-18 15:37 | Hospitalist Consultation ---
Date of Consultation March 18, 2025 Assessment & Plan (1) S/P cervical spinal fusion: #Cervical radiculopathy/degeneration now s/p ACDF on 03/18/2025 Underwent procedure 03/18. Keep collar in place. PT/OT as tolerated. Continue post-op supportive care. Rest of plan per primary team. #History of SVT Patient on diltiazem. No recent episodes. Continue dilt and monitor. #HLD Continue statin #RLS Continue pramipexole #Osteopenia Continue supplements DVT ppx: did not tolerate SCDs, would defer to primary team on chemo ppx Rest of care per primary team. (2) SVT (supraventricular tachycardia): (3) Hyperlipidemia: (4) Osteopenia: (5) Restless legs syndrome: (6) Adverse effect of anesthesia: Supervising Physician Co-Signing Physician Notes I personally examined the patient and verified all read points of history and exam, discussed case, and agree with decision making with Dr Arnie Grant. Cannot find a comfortable position. Feels the pain or an ache in the back of her neck. Vitals noted, in general she is awake and alert fatigued and appears uncomfortable. Breathing unlabored no accessory muscle use good effort. Skin without rashes pallor or icterus. Neuro shows cranial nerves II through XII be grossly intact bilateral upper extremities 5 out of 5 strength equal bilaterally, sensation is intact and equal bilaterally. Postop neck painhas multiple PRNs ordered, not have been given yet. Tylenol ordered to start now. Follow for response, additional pain medications if needed. Medically overall appears stable. Otherwise as above. DVT prophylaxisper orthopedics (SCDs) History of Present Illness Reason for Consultation: post-op ACDF, history of SVT Attending Physician: Jone Patiño MD History of Present Illness 79 y/o here for an ACDF, hospitalist team consulted for routine medical management. Patient does have a history of SVT, no recent bouts. Patient seen at bedside this afternoon. No CP or SOB. Feeling sleepy after anesthesia, maybe a little dizzy. Also uncomfortable from the procedure. Did h ave a weird sensation in her legs with the SCDs. This has resolved. Allergies Allergy/AdvReac Type Severity Reaction Status Date / Time crab Allergy Intermediate Hives Verified 03/18/25 06:17 gabapentin AdvReac Intermediate Dizziness Verified 03/18/25 06:17 hydromorphone AdvReac Intermediate Gastrointestinal Verified 03/18/25 06:17 Upset simvastatin AdvReac Intermediate Leg cramps Verified 03/18/25 06:17 Home Medications Medication Instructions Recorded Confirmed Type clobetasol 0.05 % topical cream 1 applic topical BID PRN Rash #30 03/10/24 03/18/25 Rx grams vit C 250 mg-vit E 90 mg-zinc 40 1 tab PO BID 03/10/24 03/18/25 History mg-copper 1 [id number] capsule (PreserVision AREDS-2) cholecalciferol (vitamin D3) 50 50 mcg PO QAM 04/22/24 03/18/25 History mcg (2,000 unit) capsule mecobalamin (vitamin B12) 1,000 1,000 mcg PO QAM 04/22/24 03/18/25 History mcg chewable tablet diltiazem HCl 120 mg 120 mg PO HS #90 caps 05/10/24 03/18/25 Rx capsule,extended release 24 hr rosuvastatin 5 mg tablet 5 mg PO QPM #90 tabs 05/10/24 03/18/25 Rx pramipexole 0.5 mg tablet 0.5 mg PO QPM #90 tabs 10/05/24 03/18/25 Rx acetaminophen 650 mg 1,300 mg PO QAM 03/02/25 03/18/25 History tablet,extended release (Tylenol Arthritis Pain) Patient History Medical History Adverse effect of non-steroidal anti-inflammatory drug (NSAID) Entered per remote records, patient denies Cervical kyphosis Cervical myelopathy History of supraventricular tachycardia EMR - 2021 "It might have come from the covid shot." as per patient - no issues since Lichen sclerosus et atrophicus Gait disturbance R/t back pain per patient No assistive devices at this time Osteopenia Lumbar degenerative disc disease Chronic low back pain Hypertension History of colon polyps Cervical spine degeneration History of COVID-19 x2, most recent 2021- Mild symptoms, resolved Asymptomatic age-related postmenopausal state SI (sacroiliac) joint inflammation Restless leg syndrome Hyperlipidemia Surgical History Adverse effect of anesthesia "Slow to wake up" History of colonoscopy History of esophagogastroduodenoscopy (EGD) History of tooth extraction History of wisdom tooth extraction History of bilateral cataract extraction Family History Father Family history of diabetes mellitus Mother Breast cancer dx in 60's Other No family history of adverse response to anesthesia Denies family history of Ovarian cancer Prostate cancer Myocardial infarction Colorectal cancer Uterine cancer Social History Smoking Status: Never smoker Second Hand Exposure: No; Do You Dip or Chew Tobacco: No; Tobacco Cessation Education Requested by Patient: No Hx Alcohol Use: No Hx Substance Use: No Preferred Language: Azeri Communication Ability: Effective Visual Impairment: No Limitations Hearing Ability: Use of Hearing Aid Air Conditioning Installer Required: No Beliefs That Will Affect Care: None marital status: Current Living Situation: Spouse current occupational status: retired Other Information That Helps Us Care for You: No Feels Safe at Home: Yes Safety Concerns: Feels Safe At This Time Dental Care, Regularly: Yes Physical Activity Frequency: Daily Seatbelt Use: always Assistive Devices: None Review of Systems Review of Systems: per HPI Physical Exam Physical Exam: Gen: tired appearing patient in NAD HEENT: AT NC MMM, soft collar in place Resp: no increased work of breathing CV: clinically well perfused radial pulse 2+ Abd: non-distended MSK: no obvious deformities Skin: no rashes or bruising Neuro: alert and oriented, answers questions appropriately, no focal deficits Psych: appropriate mood and affect Resident Activity Tracking Resident Involvement: Resident Care Provided Care Provided: Adult Hospital Medicine
--- NOTE | 2025-03-18 16:18 | Billing Data ---
Date of Service March 18, 2025 Coding Level of Care Code 35441 SUB INP/OBS CARE
[2025-03-18] MEDS: ceFAZolin 1000MG 1,000 MG/7.5 ML SYR IV SCH (16:56)
[2025-03-18] MEDS: ACETAMINOPHEN 500 MG TAB PO SCH (16:56)
[2025-03-18] MEDS: PROMETHAZINE 12.5 MG/50.5 ML BAG IV PRN (17:21)
[2025-03-18] MEDS: dilTIAZem HCL 120 MG CAPCR PO SCH (21:53)
[2025-03-18] MEDS: CEROVITE ADV FORMULA TAB PO SCH (21:53)
[2025-03-18] MEDS: ROSUVASTATIN CALCIUM 5 MG TAB PO SCH (21:53)
[2025-03-18] MEDS: PRAMIPEXOLE DIHYDROCHLO 0.5 MG TAB PO SCH (21:53)
[2025-03-18] MEDS: DOCUSATE SODIUM/SENNA 50/8.6MG TAB PO SCH (21:53)
[2025-03-18] MEDS: ACETAMINOPHEN 1,000 MG/100 ML VIAL IV PRN (21:57)
[2025-03-19] MEDS: oxyCODONE HCL IR 5 MG TAB (IMMEDIATE RELEASE) PO PRN (01:51)
[2025-03-19] MEDS: ONDANSETRON 4 MG OD TAB PO PRN (01:52)
[2025-03-19] MEDS: tiZANidine HCL 4 MG TABLET PO PRN (02:48)
[2025-03-19] MEDS: POLYETHYLENE (MIRALAX) 17 GM PACK PO SCH (05:37)
[2025-03-19 06:03] LABS: Hemoglobin 11.9 g/dl (12.0-16.0); Immature Granulocytes # (auto) 0.05 K/uL (0.01-0.20); Immature Granulocytes % (auto) 0.5 %; Lymphocytes # (auto) 0.83 K/uL (1.20-3.40); Lymphocytes % (auto) 8.3 %; Mean Corpuscular Hemoglobin 33.9 pg (25.0-34.0); Mean Corpuscular Hgb Conc 33.1 g/dL (32.0-36.0); Mean Corpuscular Volume 102.6 fL (80.0-100.0); Mean Platelet Volume 10.8 fL (9.4-12.4); Monocytes # (auto) 0.59 K/uL (0.11-0.59); Monocytes % (auto) 5.9 %; Neutrophils # (auto) 8.48 K/uL (1.40-6.50); Neutrophils % (auto) 85.3 %; Platelet Count 218 K/uL (130-400); RDW Coefficient of Variation 12.7 % (11.5-14.5); RDW Standard Deviation 47.7 fL (36.4-46.3); Red Blood Count 3.51 M/uL (4.20-5.40); White Blood Count 9.95 K/ul (4.8-10.8)
[2025-03-19] MEDS: CYANOCOBALAMIN (B-12) 500 MCG TABLET PO SCH (08:17)
--- NOTE | 2025-03-19 09:28 | Orthopedic Progress Note ---
Date of Service March 19, 2025 Assessment & Plan (1) S/P cervical spinal fusion: mobilize with PT collazo out when ambulating monitor drain- if less than 20 cc in next 8 hours will dc diet as tolerated pain control with oxy and tizanidine prn SCDs and ambulate given prolonged time to awaken from anesthesia and slow mobilization, will plan to keep until tomorrow Subjective s/p ACDF, much more awake today however still slow to mobilize. Some incisional soreness in neck, swallowing, no arm pain. Does not report any altered sensation in arms or legs. Review of Systems All systems reviewed & are unremarkable except as noted in HPI & below. Physical Exam neuro intact C5-T1 myotomes and dermatomes drain functioning Results & Data Results & Data Laboratory Results . Diagnostic Findings . PG Care Time/CCT Total # of Minutes Spent Total Time Spent with Patient: Total time spent is greater than 50% in coordination of care (as documented) at patient's floor/unit and/or counseling patient: Coding Level of Care Code 96117 Post Operative Follow-Up Diagnoses S/P cervical spinal fusion Z98.1
--- NOTE | 2025-03-19 12:23 | XRay Report ---
XR cervical spine 2 or 3V CLINICAL HISTORY: post-op spine surgery COMPARISON STUDY: Fluoroscopy yesterday FINDINGS: Anterior plate screw fusion from C3 through C5 shows no hardware complication. No significa nt prevertebral soft tissue swelling seen. Postoperative drain remains. No fracture or subluxation. S table degenerative changes. IMPRESSION: Unremarkable postoperative exam. ACT 112: Negative or not required by law. Electronically signed by: Uday Shin M.D. 03/19/2025 12:21 PM
[2025-03-19] MEDS: CHOLECALCIFEROL 25 MCG (1000 UNITS) TAB PO SCH (17:09)
[2025-03-20 07:07] VITALS: RESP 16
[2025-03-20 07:23] VITALS: TEMP 97.9
[2025-03-20 11:25] VITALS: BP 123/75; PULSE 68; O2SAT 94
--- NOTE | 2025-03-20 12:33 | Orthopedic Progress Note ---
Date of Service March 20, 2025 Subjective Patient seen and examined, having some neck pain but overall doing well. Limited issues with swallowing. Drain with minimal drainage, removed new dressing applied no swelling around the cervical region. Impression: Postop day 2 from 2 level ACDF with plate, stable postoperative course. Plan: Patient be discharged home with a prescription of oxycodone, advised her on collar wear and limitations in range of motion and swallowing, follow-up in 2 weeks. Review of Systems All systems reviewed & are unremarkable except as noted in HPI & below. Physical Exam . Results & Data Results & Data Laboratory Results . Diagnostic Findings . PG Care Time/CCT Total # of Minutes Spent Total Time Spent with Patient: Total time spent is greater than 50% in coordination of care (as documented) at patient's floor/unit and/or counseling patient: Coding Level of Care Code 53762 Post Operative Follow-Up
--- NOTE | 2025-03-21 15:21 | Discharge Summary ---
Date of Service March 20, 2025 Principal Diagnosis Same as "Discharge Diagnosis" noted below under Discharge Instructions. Discharge Exam Neurologically intact C5-T1 Discharge Data Consultations 03/18/25 11:32 Consult Hospitalist Routine Procedures Performed Operation Date: 03/18/25 07:30 Actual Procedures p C3-C4, C4-C5 Anterior Cervical Discectomy and Fusion, Spinal Cord Monitoring(Not Applicable) - Jone Patiño MD Ordered Studies 03/18/25 [place] cervical 2-3V Routine Hospital Course (1) S/P cervical spinal fusion: Patient was admitted postoperatively for pain control and mobilization with physical therapy. They worked with physical therapy and met all goals. Pain was controlled with IV pain medication and transitioned to oral medications. Normal return of bowel and bladder function. They worked with physical therapy, vital signs were acceptable, no need for transfusion, deemed safe for discharge. PG Care Time/CCT Total # of Minutes Spent Total Time Spent with Patient: Total time spent is greater than 50% in coordination of care (as documented) at patient's floor/unit and/or counseling patient: Discharge Plan Discharge Items Patient Disposition: Home - Self-Care Reason For Visit: Spondylolisthesis, Cervical Region, Cervical Steno Discharge Diagnosis: s/p C3-4, 4-5 ACDF Condition on Discharge: Good Activity: Per Instructions section Lifting: No more than 5 pounds Bathing Comment: showers ok on post op day 3, no baths Non-emergency contact: Surgeon Call non-emergency contact if: your symptoms worsen, your pain is worsening and your temperature is above 101 Follow-up/Referrals: Savanna Yoo MD [Primary Care Provider] - Jone Patiño MD [Surgeon] - (03/31/25 @ 10:30) Diet: Regular and Other - See Diet Comment Diet Texture: Mechanical soft (ground) Diet Comment: soft diet, advance as tolerated Addtl Attending Provider Instructions: Instructions for FUSION Spine Surgery DO NOT TAKE ANY ANTI-INFLAMMATORY MEDICATIONS (MOTRIN, ALEVE, MOBIC, ETC.) IF YOU HAVE UNDERGONE A LUMBAR, THORACIC, OR CERVICAL FUSION DO NOT TAKE ANY HERBAL SUPPLEMENTS MEDICATIONS: You will be given prescriptions for the following: Oxycodone, Percocet or Hydrocodone - For breakthrough pain. Cyclobenzaprine (Flexeril), Valium (Diazepam), Tizanidine (Zanaflex), or Methocarbamol (Robaxin) For muscle spasms and back pain. Take these medic ations as needed. They will help the most during your recovery time. Senna-s and Miralax Senna-S twice daily, 17g packet of Miralax with water once daily while taking narcotics. These medications prevent constipation caused by the pain medications. Ondansetron (Zofran) For nausea. Cephalexin (Keflex) or Sulfamethoxazole/trimethoprim (Bactrim). Antibiotic. You are given IV antibiotics while in the hospital; you may or may not be given a prescription for home; this will be decided after surgery. Your pre-surgery prescription medications With the exception of anti- inflammatory medications, blood thinners (Coumadin, Plavix, Eliquis, Pradaxa, etc.), or narcotic pain medications, you may resume your home medications. For the above medications, you will be given specific instructions; you may resume blood thinners 3-4 days after surgery. ACTIVITIES: Walking Walking is mandatory. You need to walk at least once every hour while awake. Walking will help prevent blood clots in your legs and help prevent spasms in your back. Bending/twisting Limit bending at the waist, limit twisting and turning. You will be taught to "log roll" to get out of bed. Avoid athletic activities until further notice. Lifting Do NOT lift more than 5 lbs until further notice. Driving You may drive when you are no longer taking narcotic pain medications, can safely operate the brake/gas/clutch pedals, and can move your head/neck for visibility. Tobacco All tobacco products are strictly prohibited after surgery. Any use will dramatically increase your risk of complications. This includes vapor cigarettes, marijuana, nicotine patches and gums. Bracing/Cervical Collar There is no brace required for thoracic or lumbar surgery. If you have had a single level cervical fusion, you will be given a soft collar for comfort. Multiple level cervical fusions will receive a hard collar to be worn at all times, except for showering and hygiene, until follow up in clinic. Surgical Dressing Initial operative dressing is to stay on for 2 days; you may change it if it becomes saturated. From then on, change the dressing daily with dry gauze and paper tape. Continue to change dressing until there is no discharge. Once there is no discharge on the dressing, you may leave the incision open to air but make sure to keep it out of the sun. For supplies, stop by any local pharmacy. Any type of gauze dressing is acceptable. Do not put any ointments on the wound. You may shower 48 hours after your surgery. Cover the incision with Saran Wrap and tape the edges to prevent water from contacting the incision. If water contacts the incision, pat dry. No baths or submerging the incision until seen in the clinic at follow up appointment. Next Appointment: If you do not already have one made, you will need to schedule an appointment to see Dr. Patiño about 2 weeks after surgery. To schedule, please call [phone]. QUESTIONS Please contact the office with questions or concerns: [phone] If outside normal business hours, you will be connected with the on-call physician. Pending Studies at Discharge: No Stand-Alone Forms: My [facility] Medications and DC Order Prescriptions: New tizanidine 4 mg Tablet 4 mg PO Q8H PRN (Reason: muscle spasticity) Qty: 90 1RF acetaminophen [Tylenol Extra Strength] 500 mg Tablet 1,000 mg PO Q8H PRN (Reason: pain) Qty: 30 0RF oxycodone 5 mg Tablet 5 mg PO Q4H PRN (Reason: pain) Qty: 60 0RF Continued diltiazem HCl 120 mg capsule,extended release 24hr 120 mg PO HS Qty: 90 3RF rosuvastatin 5 mg tablet 5 mg PO QPM Qty: 90 3RF PreserVision AREDS-2 250-90-40-1 mg capsule 1 tab PO BID clobetasol 0.05 % cream 1 applic TOPICAL BID PRN (Reason: Rash) Qty: 30 1RF pramipexole 0.5 mg tablet 0.5 mg PO QPM Qty: 90 3RF Hold Instructions: on GABAPENTINE cholecalciferol (vitamin D3) 50 mcg (2,000 unit) capsule 50 mcg PO QAM Rx Instructions: with heaviest meal of the day mecobalamin (vitamin B12) 1,000 mcg tablet,chewable 1,000 mcg PO QAM Discontinued acetaminophen [Tylenol Arthritis Pain] 650 mg tablet extended release 1,300 mg PO QAM No Action oxycodone-acetaminophen 5-325 mg tablet 1 tab PO TID Qty: 16 0RF Discharge Orders: Discharge Order (Routine); Ordered 03/20/25 Ordered By: Aaron Rivera/Other Patient Handouts: Oxycodone Oral Tablet, Tizanidine Oral Tablet, Cervical Disk Surg Dc Admission Data Admit Date/Time: 03/18/25 11:21 Attending Provider: Jone Patiño Admit Provider: Jone Patiño Primary Care Provider: Savanna Yoo V. Other Providers: Johnnie Heller Other Interventions: Discharge Summary Assessment (RN) Last Done: 03/20/25 12:43
== END 2025-03-20 14:37 | disposition home or self-care (01) ==
LOC: ASU 06:01 → 3E 06:01